=== PATIENT | female | born 1965 | race Caucasian/White ===

== ENCOUNTER 2020-01-21 07:55 | Day surgery (SDC) | payer OTHER, SELFPAY ==
--- NOTE | 2020-01-07 16:26 | HP.PCM_ITS ---
History and Physical Date of Admission: 01/21/20 Erica Patel Physician Specialty: UTILITY [employer] H&P Signed Encounter Date: 01/07/2020 Expand All Collapse All Hide copied text Gino for details Adriana Arrington is a 54 year old female who presents for preoperative visit. Patient is scheduled for hysteroscopy, D&C, myomectomy, Shweta endometrial ablation. Patient has a history of abnormal uterine bleeding has tried combined control pills, progesterone therapy and has failed. Patient reports the Megace has seemed to help a little bit more but still has times of heavy irregular bleeding. Patient would like to proceed with the above surgical intervention at this time. Patient denies chest pain, shortness of breath, dizziness. ? PAST MEDICAL HISTORY PAST MEDICAL HISTORY Diagnosis Date ? Hirsutism ? ? Hypothyroid ? ? Mitral valve disorders(424.0) ? ? Polycystic ovaries ? PAST SURGICAL HISTORY PAST SURGICAL HISTORY Procedure Laterality Date ? D&C, DIAG AND/OR THERAPEUTIC ? ? ? Dilation & curettage FAMILY HISTORY FAMILY HISTORY Problem Relation Age of Onset ? Prostate Cancer Father ? ? Arthritis Father ? ? Hypertension Father ? ? Diabetes Paternal Grandmother ? ? non-insulin ? Heart Paternal Grandfather ? ? Cancer Maternal Grandmother ? ? Lung ? other (Brain Tumor) Maternal Grandfather ? SOCIAL HISTORY Social History ? Tobacco Use ? Smoking status: Never Smoker ? Smokeless tobacco: Never Used Substance Use Topics ? Alcohol use: Yes ? ? Comment: Occasionally ? Drug use: No CURRENT MEDICATIONS Current Outpatient Medications Medication Sig ? megestrol (MEGACE) 20 mg tablet Take 1 tablet (20 mg) by mouth twice daily. ? Levothyroxine 100 mcg cap Take 112 mcg by mouth once daily. ? No current facility-administered medications for this visit. Allergies As of Date: 01/07/2020 Allergen Noted Reaction SULFA (SULFONAMIDE ANTIBIOTICS) 05/16/2006 ? Fully Assessed 01/07/2020 ? REVIEW OF SYSTEMS Abdomen: no pain Bladder: no dysuria.. Expanded ROS: GENERAL: Negative for fever Allergies and current medication updated:Yes ? EXAM: BP 122/76 Ht 5' 4.5 (1.64m) Wt 162 lb (73.5kg) LMP 11/22/2019 BMI 27.39 kg/(m^2). GENERAL: pleasant, female in no apparent distress HEENT: Normocephalic, atraumatic, mucus membranes moist and no lesions NECK: full range of motion DERMATOLOGY: Normal, without lesions, non-icteric and non-hirsute NEURO: alert and oriented x3,exam grossly non-focal EXTREMITIES: normal ULTRASOUND: Results Report Summary: Overall impression: Fibroid uterus noted with 3 fibroids present. The largest fibroid is 80c80x06 mm in size, and it is intramural. There is a fibroid in the lower uterine segment measuring 18 mm in greatest dimension. There is a submucosal ?fibroid measuring 22 mm in greatest dimension, and the majority of the fibroid appears to be within the endometrial cavity. Bilateral ovaries are normal appearing. There is no free fluid in the pelvic CDS. Recommendations / therapy: Clinical correlation recommended. Indication: Abnormal Uterine Bleeding. History: Last menstrual period: 07/23/2019. 2th day of cycle. Gynecological Ultrasonography: Uterus: normal, anteverted. Size: Longitudinal 98 mm. Anterio- posterior 54 mm. Transverse 61 mm. Volume: 169.0 ml. Fibroids: Fibroid 1: Size: 21 mm x 21 mm x 22 mm. Position: within endometrial canal. Fibroid 2: Size: 17 mm x 13 mm x 18 mm. Type: posterior. Position: lower uterine segment. Fibroid 3: Size: 26 mm x 15 mm x 18 mm. Type: posterior. Position: fundus. Endometrium: endometrium clearly visualized. Endometrium thickness total: 27.7 mm. IUCD: no IUCD can be seen in the endometrial cavity. Right Ovary: normal. Visible. Morphology: normal morphology. Right Ovary size: 25 mm x 19 mm x 14 mm. Volume: 3.5 ml. Left Ovary: normal. Visible. Morphology: normal morphology. Left Ovary size: 25 mm x 17 mm x 16 mm. Volume: 3.6 ml. Cul de Sac / Pouch of Javier: no free fluid visible. ? ASSESSMENT AND PLAN: Encounter Diagnosis ? ? ICD-10-CM ? 1. Abnormal uterine bleeding (AUB) N93.9 ? 2. Submucous leiomyoma of uterus D25.0 ? 3. Pt has been counseled on risks/benefits and alternatives of surgery including but not limited to anesthesia, bleeding, infection, perforation of uterus with subsequent injury to pelvic structures including bowel, bladder, ureters and vessels. Pt wishes to proceed with surgery at this time. 4. POST OP motrin ordered 5. Covid testing reviewed ? ? Erica Koo MD ? Procedure Criteria Procedure Type: Elective COVID Risk Discussion: The surgeon/proceduralist and patient have discussed in detail the risk of exposure to and/or potential harm posed by the COVID-19 virus with having a surgery/procedure at this time versus the risk of delaying the surgery/procedure. It is not possible to know either the risk of delaying the surgery or procedure or chance of getting an infection with perfect accuracy, but a joint decision was made between the patient and the surgeon/proceduralist to proceed at this time with the scheduled surgery/procedure as indicated on the consent form.
--- NOTE | 2020-01-21 | UTC_PTH ---
PATIENT: JARRETT MILLAN LOC: [facility] – [place] U#:[id number] AGE/SX: 54/F ROOM: RE01/21/[address]: Dr. Erica Koo, MDDOB: 1965 BED: DIS: 01/21/2020 SPEC #: [id number] RECD: 01/21/20 12:26 STATUS: REBECCA DYLON #: [id number] ABRAHAM: 01/21/20 00:[address]: Erica Koo DEPT: SURGICAL PATHOLOGY RECD BY: Aydin Matias ENTERED: 01/21/20 12:27 SP TYPE: UT CUR AILYNHR DR: Dr. Emanuel Olmstead MD Tissues: Uterine cervix, NOS Procedures: Surgery Specimen Level IV HEADER OPERATION: Hysteroscopy, D & C, myomectomy with Symphion, Shweta ablation PRE-OP DIAGNOSIS: Abnormal uterine bleeding; submucous leiomyoma of uterus TISSUE SUBMITTED: Submucosal fibroid MICROSCOPIC DIAGNOSIS Endometrium, curettage: Mildly disordered proliferative endometrium. Exogenous hormonal change, focal. Mild chronic endometritis. Fragments of myometrium consistent with leiomyoma. AM:jovanna 01/22/20 MICROSCOPIC DESCRIPTION Slides are reviewed. GROSS DESCRIPTION Received in fixative is one container labeled with the patient's name and designated submucosal fibroid. The specimen consists of multiple irregular fragments of garcia soft tissue mixed with blood clot that in aggregate measure 3 x 2.5 x 0.3 cm. The specimen is totally submitted in one cassette. / SJ:jovanna 01/21/20 TC:5 CPT: 64845
[2020-01-21 08:34] VITALS: BP 133/72; PULSE 64; RESP 16; TEMP 35.8; O2SAT 100; BMI 27.5
[2020-01-21] MEDS: Lactated Ringers 1,000 ML 100 ML IV (08:42)
[2020-01-21 08:44] LABS: Internal QC Validated? YES +Cl - CLEAR BKGD; Pregnancy, Urine Negative Negative
[2020-01-21 08:45] LABS: Hematocrit 41.4 % (37-47); Hemoglobin 13.1 g/dL (12.0-15.0); Mean Corp Hgb Conc 31.6 g/dL (32-36); Mean Corpuscular Hgb 29.3 pg (27.0-32.0); Mean Corpuscular Volume 92.6 fL (81-99); Mean Platelet Vol. 10.5 fl (6.2-12.0); Platelet Count 188 K/mm3 (150-450); RBC Distribution Width CV 13.2 % (11.6-14.6); RBC Distribution Width SD 44.6 fl (35.1-43.9); Red Blood Count 4.47 M/mm3 (4.2-5.4); White Blood Count 5.3 K/mm3 (4.4-11.0)
--- NOTE | 2020-01-21 09:32 | DCINST_ITS ---
Discharge Diet: No Restrictions Discharge Activity: Return to Normal Activity, May Shower, May Take a Tub Bath - in 2 weeks. May resume sexual activity in: 2 weeks Call your doctor if you observe: Using more than one pad per hour Allergies/Adverse Reactions: Allergies Sulfa (Sulfonamide Antibiotics) Allergy (Verified 01/21/20 08:00) Hives Medications to take at Discharge Levothyroxine Sodium [Synthroid] 112 mcg PO DAILY 01/13/20 Megestrol [Megace] 20 mg PO BID 01/13/20 Vits [Prenatabs FA] 1 tab PO QHS 01/13/20 Primary Care Physician: Emanuel Olmstead MD [Primary Care Provider] - Test Results: Test results from this visit will be discussed in further detail at your follow- up appointment, if applicable.
--- NOTE | 2020-01-21 09:33 | OP.PCM_ITS ---
Report of Operation Date of Procedure: 01/21/20 Pre-Operative Diagnosis: aub, fibroid uterus Post-Operative Diagnosis: same, submucosal fibroid Surgery/Procedure Performed:: hysteroscopy, D&C, Submucosal myomectomy, Shweta ablation Description of Surgical Findings:: submucosal fibroid appreciated from anterior fundal aspect of uterus. only able to remove approximately half of fibroid prior to losing visualization due to bleeding from fibroid. at this time decision made to perform ablation as there was no breech in endometrial cavity. Type of Anesthesia:: MAC Specimen's removed: submucosal fibroid Drains: none Estimated Blood Loss (mL): 40 Fluids Replaced: 800 Description of Procedure: After informed consent was obtained patient taken to the operating room she is placed in supine position she is given anesthesia simply self insert she is prepped draped normal sterile fashion. Bladder was drained prior to the start of the procedure. At this time the weighted speculum was placed the posterior fornix of the vagina then a single-tooth tenaculum was used to grasp the anterior lip of the cervix. At this time the uterus was sounded to approximately 10 cm the endocervical canal sounded to 4cm. Next cervix was dilated in incremental fashion. Once adequate dilatation was achieved the hysteroscope was inserted using normal saline as distention medium. On hysteroscopy submucosal fibroid noted- from anterior fundal aspect. Both tubal ostia were visualized. At this time the symphion resector was used to resect fibroid- due to bleeding from fibroid poor visualization after about half of the 2.5cm fibroid was removed. At this time decision was made to perform the Ablatio n as there was no breech in the endometrial wall into myometrium. I was not able to remove fibroid completely but was able to reduce size by about half. tissue will be sent to pathology for evaluation. Fluid deficit 600cc. At this time the Shweta device was opened. The Shweta was set at 6 cm. The device was activated. Prior to activation the field test was performed and cavity was intact. The device was then fired and activated for 120 seconds. Once the 120 seconds was completed the device was removed intact and the tenaculum was removed. Good hemostasis was appreciated. Weighted speculum was removed. Vaginal sweep was performed is negative. There were no complications. Anticipated normal postoperative course for this patient. Instrument and lap count were correct ?2. Grafts/Implants Used: none - Complications none - Admit VTE Documentation VTE Present on Admission: Yes VTE Mechan Device Prophylaxis: SCD's VTE Pharm Prophylaxis ordered?: No
[2020-01-21 09:45] VITALS: BP 133/72; BP 135/78; PULSE 55; RESP 16; TEMP 36.1
[2020-01-21 09:50] VITALS: BP 133/72; BP 138/86; PULSE 51; RESP 16; O2SAT 99
[2020-01-21 09:56] VITALS: BP 118/88; BP 133/72; PULSE 54; RESP 16; O2SAT 100
[2020-01-21 09:59] VITALS: BP 133/72; BP 134/83; PULSE 55; RESP 16; TEMP 37; O2SAT 100
[2020-01-21] MEDS: HYDROcodone Bitartrate/Apap 5/325 Tablet PO (10:33)
[2020-01-21 11:06] VITALS: BP 133/72; BP 141/92; PULSE 61; RESP 18; TEMP 36.9; O2SAT 100
== END 2020-01-21 11:08 | disposition home or self-care (01) ==
LOC: SDC 08:00 → AC 08:05
PROVIDERS: Anesthesiology; PCP Internal Medicine Infectious Disease; Referring Provider Obstetrics & Gynecology; Visit Provider Obstetrics & Gynecology
PROC: 0UB98ZZ Excision of Uterus, Via Natural or Artificial Opening Endoscopic (ICD-10-PCS; CPT 58558; principal; 2020-01-21 09:15)
DX: N93.9 Abnormal uterine and vaginal bleeding, unspecified (principal); D25.0 Submucous leiomyoma of uterus; N71.1 Chronic inflammatory disease of uterus; I34.1 Nonrheumatic mitral (valve) prolapse; E03.9 Hypothyroidism, unspecified; Z11.59 Encounter for screening for other viral diseases
CPT/HCPCS: 58561; 58563; 81025; 85027; 87635; 88305; G2023; J7120; U0003